=== PATIENT | male | born 1970 | race Caucasian/White ===

== ENCOUNTER 2016-03-11 07:51 | Emergency (ER) | payer OTHER ==
[2016-03-11] MEDS ORDERED: ONDANSETRON 4 MG/2 ML VIAL IVP ONE (08:04)
[2016-03-11] MEDS ORDERED: HYDROmorphONE/DILAUDID 1 MG/ML SYR IVP ONE (08:04)
[2016-03-11] MEDS ORDERED: NS 1,000 ML IV ONE ×2 (08:04)
[2016-03-11 08:14] LABS: % IMMATURE GRANULYOCYTES 0.3 % (0.0-1.1); ABSOLUTE IMMATURE GRANULOCYTES 0.04 10^3/uL (0.00-0.10); ADD DIFF? NO; ADD MORPH? NO; ADD SCAN? NO; ATYPICAL LYMPHOCYTE FLAG 0 (0-99); FRAGMENT RBC FLAG 0 (0-99); HEMATOCRIT 40.2 % (40.0-51.0); HEMOGLOBIN 14.8 g/dL (13.7-17.5); LEFT SHIFT FLG 0 (0-99); LIPEMIA HEMOLYSIS FLAG 90 (0-99); MEAN CELL HEMOGLOBIN 32.3 pg (27.9-34.1); MEAN CELL HEMOGLOBIN CONCENTR. 36.8 g/dL (32.4-36.7); MEAN CELL VOLUME 87.8 fL (81.5-99.8); MEAN PLATELET VOLUME 8.9 fL (8.7-11.7); PLATELET CLUMPS FLAG 0 (0-99); PLATELET COUNT 215 10^3/uL (150-400); RED BLOOD CELL COUNT 4.58 10^6/uL (4.40-6.38); RED CELL DISTRIBUTION WIDTH 11.9 % (11.5-15.2)
[2016-03-11 08:31] LABS: ANION GAP 13 mEq/L (8-16); CALCIUM 9.7 mg/dL (8.5-10.4); CARBON DIOXIDE 25 mEq/l (22-31); CHLORIDE 103 mEq/L (97-110); CREATININE 1.1 mg/dL (0.7-1.3); GLOMERULAR FILTRATION RATE > 60; GLUCOSE 136 mg/dL (70-100); POTASSIUM 3.8 mEq/L (3.5-5.2); SODIUM 141 mEq/L (134-144)
[2016-03-11 09:11] LABS: COLOR YELLOW; LEUKOCYTE ESTERASE,URINE NEGATIVE (NEGATIVE); NITRITE,URINE NEGATIVE (NEGATIVE)
--- NOTE | 2016-03-11 09:11 | EDPHY ---
H & P Stated Complaint: L flank pain - Personal History Current Tetanus/Diphtheria Vaccine: Unsure Current Tetanus Diphtheria and Acellular Pertussis (TDAP): Unsure - Medical/Surgical History Hx Asthma: No Hx Chronic Respiratory Disease: No Hx Diabetes: No Hx Cardiac Disease: No Hx Renal Disease: No Hx Cirrhosis: No Hx Alcoholism: No Hx HIV/AIDS: No Hx Splenectomy or Spleen Trauma: No Other PMH: depression kidney stones - Social History Smoking Status: Never smoked HPI/ROS: Chief complaint: Left flank pain History of present illness: This is a 45-year-old male who presents to the emergency department for evaluation of left flank pain. He reports the onset of symptoms this morning. He describes severe pain radiating towards the front of his abdomen. He has had associated nausea and vomiting. He denies precipitating factors. He denies alleviating factors. He denies other associated signs or symptoms including no fevers, no dysuria or hematuria, no changes in his bowel habits. Review of systems: A 10 point review of systems was obtained and other than described above was negative (Guillermo Kelsey) - Physical Exam Exam: General Appearance: Alert, nontoxic. Eyes: Pupils equal and round no pallor or injection. ENT, Mouth: Mucous membranes moist. Respiratory: There are no retractions, lungs are clear to auscultation. Cardiovascular: Regular rate and rhythm. Gastrointestinal: Abdomen is soft and non tender, no masses, bowel sounds normal. Genitourinary: No CVA tenderness Neurological: Alert and oriented. Strength and sensation intact and symmetrical. Skin: Warm and dry, no rashes. Musculoskeletal: Neck is supple non tender. Extremities are symmetrical, full range of motion. Psychiatric: Patient is oriented X 3, there is no agitation. (Guillermo Kelsey) Constitutional: Initial Vital Signs Temperature (C) 36.5 C 03/11/16 07:52 Heart Rate 87 03/11/16 07:52 Respiratory Rate 16 03/11/16 07:52 Blood Pressure 136/95 H 03/11/16 07:52 O2 Sat (%) 97 03/11/16 07:52 O2 Delivery Mode Room Air O2 (L/minute) 2 Allergies/Adverse Reactions: No Known Allergies Allergy (Unverified 09/29/12 09:43) Home Medications: Medication Instructions Recorded Ondansetron Odt [Zofran Odt 4 mg 4 mg PO Q4 #10 tab 03/11/16 (*)] Tamsulosin HCl [Flomax 0.4 MG (*)] 0.4 mg PO DAILY #4 cap 03/11/16 oxyCODONE/APAP 5/325 [Percocet 1 tab PO Q4H #15 tab 03/11/16 5/325 (*)] Medical Decision Making - Diagnostics Imaging: CT scan of the abdomen and pelvis did show a 5 x 5 x 6 mm obstructive left ureterolith at the L3 level with moderate upstream hydroureteronephrosis and extensive perinephric and periureteral inflammation stranding, likely reflecting a caliceal rupture and a mild uroma, please see report for full details (Guillermo Kelsey) ED Course/Re-evaluation: The patient was evaluated and managed by the physician's podiatry assistant. My cosignature indicates that I reviewed the chart and I agree with the findings and plan of care as documented. I am the secondary supervising physician. ( Katina Rose) Patient seen under the supervision of my secondary supervising physician Dr. Katina Rose. Patient presents to the emergency department for evaluation of left flank pain. He is afebrile and vital signs are stable. He is nontoxic. Evaluation does reveal a left-sided kidney stone with possible calyceal rupture and uroma. Patient has been symptomatically treated and has good control of his symptoms. He is tolerating p.o. challenges. I have consulted with on-call Urology, Dr. Driver. He is comfortable with patient being treated on an outpatient basis and following up in his clinic. He does recommend Flomax as well as pain medication. Patient will be discharged home. Home care is discussed. He is asked to strain his urine. Referral information to Urology is provided. Strict return precautions are given. Patient voiced understanding and agreement with plan. (Guillermo Kelsey) Differential Diagnosis: Included but not limited to kidney stone, urinary tract infection, peptic ulcer disease, biliary tract disease, pancreatitis, colitis (Guillermo Kelsey) - Data Points Laboratory Results: Laboratory Results 03/11/16 08:00 03/11/16 08:00 03/11/16 03/11/16 08:15 08:00 WBC 11.77 H 10^3/uL (3.80-9.50) RBC 4.58 10^6/uL (4.40-6.38) Hgb 14.8 g/dL (13.7-17.5) Hct 40.2 % (40.0-51.0) MCV 87.8 fL (81.5-99.8) MCH 32.3 pg (27.9-34.1) MCHC 36.8 H g/dL (32.4-36.7) RDW 11.9 % (11.5-15.2) Plt Count 215 10^3/uL (150-400) MPV 8.9 fL (8.7-11.7) Neut % (Auto) 86.7 H % (39.3-74.2) Lymph % (Auto) 6.9 L % (15.0-45.0) [place] % (Auto) 5.9 % (4.5-13.0) Eos % (Auto) 0.0 L % (0.6-7.6) Baso % (Auto) 0.2 L % (0.3-1.7) Nucleat RBC Rel Count 0.0 % (0.0-0.2) Absolute Neuts (auto) 10.21 H 10^3/uL (1.70-6.50) Absolute Lymphs (auto) 0.81 L 10^3/uL (1.00-3.00) Absolute Monos (auto) 0.69 10^3/uL (0.30-0.80) Absolute Eos (auto) 0.00 L 10^3/uL (0.03-0.40) Absolute Basos (auto) 0.02 10^3/uL (0.02-0.10) Absolute Nucleated RBC 0.00 10^3/uL (0-0.01) Immature Gran % 0.3 % (0.0-1.1) Immature Gran # 0.04 10^3/uL (0.00-0.10) Sodium 141 mEq/L (134-144) Potassium 3.8 mEq/L (3.5-5.2) Chloride 103 mEq/L (97-110) Carbon Dioxide 25 mEq/l (22-31) Anion Gap 13 mEq/L (8-16) BUN 23 mg/dL (7-23) Creatinine 1.1 mg/dL (0.7-1.3) Estimated GFR > 60 Glucose 136 H mg/dL (70-100) Calcium 9.7 mg/dL (8.5-10.4) Urine Color YELLOW Urine Appearance CLEAR Urine pH 7.0 (5.0-7.5) Ur Specific [place] 1.012 (1.002-1.030) Urine Protein NEGATIVE (NEGATIVE) Urine Ketones NEGATIVE (NEGATIVE) Urine Blood 2+ H (NEGATIVE) Urine Nitrate NEGATIVE (NEGATIVE) Urine Bilirubin NEGATIVE (NEGATIVE) Urine Urobilinogen NEGATIVE EU (0.2-1.0) Ur Leukocyte Esterase NEGATIVE (NEGATIVE) Urine RBC 10-15 H /hpf (0-3) Urine WBC 1-3 /hpf (0-3) Ur Epithelial Cells Not Reported Ur Culture Indicated? NOT INDICATED (NI) Urine Glucose NEGATIVE (NEGATIVE) Medications Given: Discontinued Medications Hydromorphone HCl (Dilaudid) 1 mg IVP EDNOW ONE Stop: 03/11/16 08:05 Last Admin: 03/11/16 08:12 Dose: 1 mg Sodium Chloride (Ns) 1,000 mls @ 0 mls/hr IV ONCE ONE PRN Reason: Wide Open Stop: 03/11/16 08:05 Last Admin: 03/11/16 08:13 Dose: 1,000 mls Sodium Chloride (Ns) 1,000 mls @ 0 mls/hr IV ONCE ONE PRN Reason: Wide Open Stop: 03/11/16 08:05 Last Admin: 03/11/16 08:15 Dose: 1,000 mls Ondansetron HCl (Zofran) 4 mg IVP EDNOW ONE Stop: 03/11/16 08:05 Last Admin: 03/11/16 08:12 Dose: 4 mg Departure - Departure Disposition: Home, Routine, Self-Care Clinical Impression: Kidney stone Condition: Good Instructions: Kidney Stones (ED) Additional Instructions: Follow-up with Urology for continued evaluation and care Drink plenty of fluids to stay hydrated You have been prescribed Percocet for pain. Percocet contains Tylenol, do not take extra Tylenol/acetaminophen/Apap with it. It is sedating. Use Zofran as directed as needed for nausea and vomiting Take Flomax as directed, you had a dose in the emergency department today, your next dose is tomorrow If symptoms worsen or new symptoms develop including development of fever, increasing pain, persistent nausea and vomiting or other signs or symptoms return to the emergency department immediately for recheck Referrals: Reynold Del Castillo MD [Primary Care Provider] - As per Instructions Anival Driver MD [Medical Doctor] - As per Instructions Prescriptions: Tamsulosin HCl [Flomax 0.4 MG (*)] 0.4 mg PO DAILY #4 cap oxyCODONE/APAP 5/325 [Percocet 5/325 (*)] 1 tab PO Q4H #15 tab Ondansetron Odt [Zofran Odt 4 mg (*)] 4 mg PO Q4 #10 tab
--- NOTE | 2016-03-11 09:38 | CT ---
Unenhanced CT Scan of the Abdomen and Pelvis (Renal Stone Protocol) Clinical History: 45-year-old male complaining of sudden-onset of left flank and abdominal pain for s even hours. The patient has a prior history of right ureterolithiasis in June 2012. Technique: A multidetector unenhanced helical CT scan was obtained from lung bases inferiorly through the ischial tuberosities with images reformatted at 5.00 and 1.50 mm increments, and reviewed in a v ariety of window/level settings. The DFOV is 37.0 cm. A dose reduction protocol was used. Parasagitta l and paracoronal reconstructed images were also provided. Comparison Study: Unenhanced CT scan of the abdomen and pelvis, dated July 01, 2012. Findings Unenhanced CT Scan of the Abdomen: There is a 5 x 5 x 6 mm stone seen in the proximal left ureter, ju st caudal to the left renal pelvis, seen at the superior L3 level. This results in moderate left hydr oureteronephrosis. There is associated perinephric stranding and periureteral inflammation, which lik julia reflects sequela of calyceal rupture. On the previous study in June 2012, the left ureterolith now present was situated in the upper pole of the left kidney. There are no new left renal calculi. Sinc e the prior study in 2012, there has been resolution of obstructive right ureterolithiasis, and there has been interim passage of a previously-seen stone situated in the lower pole of the right kidney. There are some minor dependent changes seen at the posterior lung bases. There is no pleural or peric ardial effusion. There is some mild wall thickening of the distal thoracic esophagus, just above the GE junction. There are no hepatic, biliary, pancreatic, splenic, or adrenal calcifications. The CT ap pearance of small and large bowel is grossly unremarkable. The abdominal aorta is normal in size. A s mall fat-containing periumbilical hernia is present. The osseous structures are age-appropriate. Unenhanced CT Scan of the Pelvis: The appendix appears normal, and is seen on series 4 images 157-174 . The urinary bladder is moderately distended, and there no urinary bladder calculi. There is a malle able reconstruction plate at the level of the superior ischium, bridging the symphysis pubis and resu lting in beam-hardening artifact. There is no evidence of distal ureterolithiasis. The prostate gland and the seminal vesicles appear normal. Each femoral head is well-seated within its respective aceta bulum. There is a well-corticated ossific density along the lateral margin of the right acetabulum wh ich could represent an old avulsion injury or an unfused secondary ossification center. Impression: 1. There is a 5 x 5 x 6 mm obstructive left ureterolith at the L3 level with moderate upstream hydrou reteronephrosis and extensive perinephric and periureteral inflammatory stranding, likely reflecting a calyceal rupture and a mild urinoma. 2. Interim resolution of obstructive right uropathy since June 2012, and resolution of a lower pole ri ght nephrolith. 3. Normal appearance to the appendix. 4. Postsurgical change to the superior ischia and symphysis pubis. Results were discussed with Guillermo Kelesy PA-C. Attention: This CT examination is specifically designed to evaluate patients who are clinically susp ected of having acute obstructive uropathy. This examination does not use radiographic contrast, and as such, provides only a limited evaluation of the abdomen, pelvis, and retroperitoneum. If there i s further clinical suspicion for pathological conditions other than obstructive uropathy, a complete CT evaluation of the abdomen and pelvis utilizing intravenous, oral, and rectal contrast should be co nsidered. A test result has been communicated to a licensed care provider and documented in [email or web address], 9:24:42 AM , 03/11/2016, [email or web address] Message ID [id number].
[2016-03-11] MEDS ORDERED: TAMSULOSIN HCL 0.4 MG CAP PO ONE ×2 (09:59→10:16)
[2016-03-11 10:14] VITALS: BP 104/64; PULSE 92; RESP 18; TEMP 97.5; O2SAT 98
== END 2016-03-11 10:13 | disposition home or self-care (01) ==
DX: N20.0 Calculus of kidney (principal)
CPT/HCPCS: 96374; J1170; J2405

== ENCOUNTER → 2016-05-08 | Outpatient (CLI) | payer OTHER | LOC: BMCIMAGING 09:41 | PROVIDERS: ATTEND Urology | DX: N20.1 Calculus of ureter (principal) ==

== ENCOUNTER → 2016-06-18 | Outpatient (CLI) | payer OTHER | LOC: BMCIMAGING 10:50 | PROVIDERS: ATTEND Urology | DX: N20.1 Calculus of ureter (principal) ==

== ENCOUNTER → 2016-08-01 | Outpatient (CLI) | payer OTHER | LOC: BMCIMAGING 08:30 | PROVIDERS: ATTEND Urology | DX: Z87.442 Personal history of urinary calculi (principal) ==

== ENCOUNTER 2016-10-07 18:57 | Emergency (ER) | payer OTHER ==
[2016-10-07 19:05] VITALS: TEMP 98.2
[2016-10-07] MEDS ORDERED: ONDANSETRON 4 MG/2 ML VIAL ONE (19:19)
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
[2016-10-07] MEDS ORDERED: ONDANSETRON 4 MG/2 ML VIAL IVP ONE (19:22)
[2016-10-07] MEDS ORDERED: OXYCODONE/APAP 5/325MG PREPACK#4 BTL TAKEHOME ONE ×2 (20:17→20:31)
[2016-10-07] MEDS ORDERED: OXYCODONE/APAP 5/325 TAB ONE (20:17)
[2016-10-07] MEDS ORDERED: ONDANSETRON DISINTEGRATING 4 MG TAB ONE (20:24)
[2016-10-07] MEDS ORDERED: ONDANSETRON 4MG PREPACK#2 BTL TAKEHOME ONE ×2 (20:24→20:30)
[2016-10-07 20:29] VITALS: BP 147/69; PULSE 75; RESP 18; O2SAT 96
[2016-10-07] MEDS ORDERED: ONDANSETRON DISINTEGRATING 4 MG TAB PO ONE (20:30)
[2016-10-07] MEDS ORDERED: OXYCODONE/APAP 5/325 TAB PO ONE (20:31)
== END 2016-10-07 20:34 | disposition home or self-care (01) ==
DX: S42.022A Displaced fracture of shaft of left clavicle, initial encounter for closed fracture (principal); S09.90XA Unspecified injury of head, initial encounter; V18.0XXA Pedal cycle driver injured in noncollision transport accident in nontraffic accident, initial encounter; Y92.89 Other specified places as the place of occurrence of the external cause; Y99.8 Other external cause status; Y93.55 Activity, bike riding
CPT/HCPCS: 96374; J2405